=== PATIENT | female | born 1960 | race Caucasian/White ===

== ENCOUNTER 2025-03-20 19:36 | Emergency (ER) | payer MEDICARE ==
[2025-03-20 19:53] VITALS: TEMP 98.7
[2025-03-20 20:07] VITALS: BP 184/84; PULSE 59; RESP 14; O2SAT 98
--- NOTE | 2025-03-20 20:25 | ERPHSYRPT ---
- History of Present Illness Time Seen by Provider: 03/20/25 20:20 Source: patient Patient Subjective Stated Complaint: PT STATES SHE IS HAVING VERY LOW BLOOD PRESSURE Triage Nursing Assessment: PT ARRIVES TO THE ED VIA PRIVATE VEHICLE. PT AMBULATES INTO THE ED WITHOUT DIFFICULTY. PT IS ALERT AND ORIENTED X4, NO RESPIRATORY DISTRESS NOTED, PULSES PRESENT AND EQUAL BILATERALLY. PT STATES SHE USED TO TAKE 60 OF NIFEDIPINE DAILY AND HER DOCTOR RECENTLY LOWERED IT TO 30 MG DAILY, AFTER THIS SHE WAS HOSPITALIZED FOR HIGH BLOOD PRESSURE. AT HER FOLLOW UP APPOINTMENT AFTER BEING DISCHARGED HER DOCTOR STARTED HER ON CARVEDILOL AND DISCONTINUED HER ON THE NIFEDIPINE. PT BELIEVES SHE IS GOING THROUHG NIFEDIPINE WITHDRAWL. PT HAS BEEN CHECKING HER BLOOD PRESSURE AT HOME AND SAID THAT IT GOT LOW 101/68. WHEN PATIENT ARRIVED TO THE ED BLOOD PRESSURE WAS 186/92. PT STATES SHE HAS HAD SOME DIZZINESS. PT DOES HAVE A HISTORY OF ANXIETY THAT SHE TAKES XANAX FOR AND STATED THAT IF SHE JUST TAKES ONE OF HER XANAX HER BLOOD PRESSURE WILL COME DOWN. Physician History: patient has been weanging of nifepdipine 30 mg and started carvedilol today. she reports she had low bp at home about 100 systolic and felt light headed. no other symptoms. better on er arrival. hypertensive with sbp 180 on arrival. Allergies/Adverse Reactions: No Known Drug Allergies Allergy (Verified 03/20/25 19:53) Home Medications: Alprazolam [Xanax] 0.5 mg PO TID PRN 03/20/25 [History] Apixaban [Eliquis] 5 mg PO BID 03/20/25 [History] Carvedilol 3.125 mg [Coreg 3.125 MG] 3.125 mg PO BID 03/20/25 [History] lisinopriL [Zestril] 40 mg PO DAILY 03/20/25 [History] Hx Tetanus, Diphtheria Vaccination/Date Given: No Hx Influenza Vaccination/Date Given: No Hx Pneumococcal Vaccination/Date Given: No Immunizations Up to Date: Yes Travel Risk - International Travel Have you traveled outside of the country in past 3 weeks: No - Emerging Infectious Disease Are you exhibiting symptoms associated with any current EIDs: No - Review of Systems Constitutional: No Fever, No Chills Eyes: No Symptoms Ears, Nose, & Throat: No Symptoms Respiratory: No Cough, No Dyspnea Cardiac: No Chest Pain, No Edema, No Syncope Abdominal/Gastrointestinal: No Abdominal Pain, No Nausea, No Vomiting, No Diarrhea Genitourinary Symptoms: No Dysuria Musculoskeletal: No Back Pain, No Neck Pain Skin: No Rash Neurological: Dizziness, No Focal Weakness, No Sensory Changes Psychological: No Symptoms Endocrine: No Symptoms All Other Systems: Reviewed and Negative - Past Medical History Pertinent Past Medical History: Yes Neurological History: No Pertinent History ENT History: No Pertinent History Cardiac History: Hypertension Respiratory History: COPD Endocrine Medical History: No Pertinent History Musculoskeletal History: Arthritis GI Medical History: No Pertinent History History: No Pertinent History Psycho-Social History: Anxiety Female Reproductive Disorders: No Pertinent History Other Medical History: uterine prolapse - Past Surgical History Past Surgical History: Yes Neuro Surgical History: No Pertinent History Cardiac: No Pertinent History Respiratory: No Pertinent History Gastrointestinal: No Pertinent History Genitourinary: No Pertinent History Musculoskeletal: Other Female Surgical History: No Pertinent History Other Surgical History: R Rotator Cuff. dental implants. abscess I&D - Social History Smoking Status: Never smoker Exposure to second hand smoke: No Drug Use: none - Social Determinants of Health Will the patient participate in the screening: Yes Do you worry about a steady place to live?: No Do you have any problems with any of the following?: No known problems In the past 12 months,have you had to go without utilities?: No Transportation Issues: No Has anyone in your support network made you feel unsafe?: No Have you or anyone in your house had to go w/o enough food: No - Nursing Vital Signs Nursing Vital Signs: Initial Vital Signs Temperature 98.7 F 03/20/25 19:49 Pulse Rate 68 03/20/25 19:49 Respiratory Rate 15 03/20/25 19:49 Blood Pressure 186/92 03/20/25 19:49 O2 Sat by Pulse Oximetry 99 03/20/25 19:49 Pain Scale Pain Intensity 3 - Physical Exam General Appearance: anxiety Eye Exam: PERRL/EOMI, eyes nml inspection Ears, Nose, Throat Exam: normal ENT inspection, TMs normal, pharynx normal, moist mucous membranes Neck Exam: normal inspection, non-tender, supple, full range of motion Respiratory Exam: normal breath sounds, lungs clear, No respiratory distress Cardiovascular Exam: regular rate/rhythm, normal heart sounds, normal peripheral pulses Gastrointestinal/Abdomen Exam: soft, normal bowel sounds, No tenderness, No mass Back Exam: normal inspection, normal range of motion, No CVA tenderness, No vertebral tenderness Extremity Exam: normal inspection, normal range of motion, pelvis stable Neurologic Exam: alert, oriented x 3, cooperative, normal mood/affect, nml cerebellar function, nml station & gait, sensation nml, No motor deficits Skin Exam: normal color, warm, dry, No rash Lymphatic Exam: No adenopathy SpO2 Interpretation: normal SpO2: 98 - Progress Progress: improved Progress Note: 03/20/25 20:33 jeremias is adjustig to nifedipine wean and stopped it today and started carvedilol. had low bp at 100 at hme but hypertension in er. i do not see an indication for urgent owrk up as symptoms are resolved. she will continue bp med regimen and follow closely pcp for managment and retujrn for symptoms - Departure Departure Disposition: Home Clinical Impression: Hypertension Condition: Good Critical Care Time: No Referrals: MARCELLA GARCIA MD [Primary Care Provider, [facility]] - Follow up/PCP as directed Additional Instructions: continue your new blood pressure regimen. return for symptoms, monitor bp daily. contact pcp sunday to discuss results
== END 2025-03-20 20:48 | disposition home or self-care (01) ==
LOC: ED 19:36
DX: I10 Essential (primary) hypertension (principal); Z79.01 Long term (current) use of anticoagulants; Z79.899 Other long term (current) drug therapy